=== PATIENT | male | born 1930 | race Caucasian/White ===

== ENCOUNTER 2018-03-26 06:02 | Inpatient (IN) | payer OTHER ==
[~2018-03-26] VITALS: Ht 177.8 cm; Wt 86.9 kg
[~2018-03-26 06:02] MED LIST: FELODIPINE ER10 MG PO; MECLIZINE HCL25 MG PO; NEXIUM 24HR20 M1 PO; SYNALAR 0.025%15 GM TP
[2018-03-26 07:48] LABS: BASOPHIL (%) 0.4 % (0-1); EOSINOPHIL (%) 1.5 % (0-5); EOSINOPHIL COUNT 0.1 K/uL (0-0.3); HEMATOCRIT 44.3 % (38.0-50.0); HEMOGLOBIN 14.9 G/DL (12.5-16.6); IMMATURE GRANULOCYTE (%) 0.4 % (0.0-0.7); LYMPHOCYTE (%) 26.2 % (15-42); MCH 30.3 PG (29.0-34.0); MCHC 33.6 G/DL (30.0-36.0); MCV 90.2 FL (86-99); MONOCYTE (%) 12.6 % (3-12); NEUTROPHIL (%) 58.9 % (45-76); NEUTROPHIL COUNT 4.6 K/uL (1.8-6.4); PLATELET COUNT 180 K/uL (156-360); RBC DIS.WIDTH-CV 13.1 % (11.8-14.6); RBC DIS.WIDTH-SD 43.3 % (39-53); RED BLOOD COUNT 4.91 M/uL (4.00-5.50); WHITE BLOOD COUNT 7.8 K/uL (4.1-10.2)
[2018-03-26 08:14] LABS: TROP-I INTERPRETATION NEGATIVE; TROPONIN-I 0.03 ng/mL (0.0-0.30)
[2018-03-26 08:18] LABS: ALBUMIN 3.8 G/DL (3.2-4.8); ALKALINE PHOSPHATASE 63 IU/L (3-129); ALT (GPT) 16 IU/L (3-49); AST (GOT) 24 IU/L (2-34); CHLORIDE 109 MEQ/L (99-109); CREATINE KINASE 340 IU/L (1-294); CREATININE 0.8 MG/DL (0.6-1.3); GFR ESTIMATE (CALCULATED) > 59 mL/min/ (58.99-99999); GLUCOSE 104 mg/dL (70-99); POTASSIUM 3.7 MEQ/L (3.7-5.4); SODIUM 144 MEQ/L (136-147); TOTAL BILIRUBIN 0.7 MG/DL (0.0-1.0); TOTAL CK 340 IU/L (1-294); TOTAL PROTEIN 5.9 G/DL (6.4-8.3); UREA NITROGEN (BUN) 22 mg/dL (9-23)
[2018-03-26 08:38] LABS: CKMB RELATIVE INDEX 2.8 (0.0-3.9)
[2018-03-26 08:44] LABS: CK-MB 9.5 ng/mL (0.0-4.9)
[2018-03-26 10:05] LABS: APPEARANCE CLEAR ((CLEAR)); BILIRUBIN NEGATIVE; BLOOD NEGATIVE; COLOR YELLOW ((YELLOW)); GLUCOSE (STRIP) NEGATIVE; KETONES NEGATIVE; LEUKOCYTES NEGATIVE; NITRITE NEGATIVE; PROTEIN (STRIP) NEGATIVE; SPECIFIC GRAVITY 1.023 (1.000-1.030); UCUL ADDED? NO; UROBILINOGEN 0.2 MG/DL (0.2-1.0)
[2018-03-26 13:25] LABS: TROP-I INTERPRETATION NEGATIVE; TROPONIN-I 0.03 ng/mL (0.0-0.30)
[2018-03-26 13:41] LABS: HDL CHOLESTEROL 46 MG/DL (Desirable>=40); LDL CHOLESTEROL 92 mg/dL (Desirable<100); NON-HDL CHOLESTEROL 108 mg/dL (Desirable<160); TOTAL CHOLESTEROL 154 mg/dL (Desirable<200); TRIGLYCERIDES 82 MG/DL (Normal: <150)
[2018-03-26] MEDS ORDERED: PRAVASTATIN SOD20 MG PO (15:22)
[2018-03-26] MEDS ORDERED: VALACYCLOVIR500 MG PO (15:22)
[2018-03-26] MEDS ORDERED: FISH OIL CONC1 EACH PO (15:23)
[2018-03-26] MEDS ORDERED: MEN'S 50 PLUS1 EACH PO (15:23)
[2018-03-26 18:45] LABS: TROP-I INTERPRETATION NEGATIVE; TROPONIN-I 0.02 ng/mL (0.0-0.30)
[2018-03-26 19:24] VITALS: BP 143/66
[2018-03-27] VITALS (7 sets, daily range): BP systolic 136–178; BP diastolic 70–100
[2018-03-28] VITALS (7 sets, daily range): BP systolic 124–186; BP diastolic 63–82
[2018-03-28 06:45] LABS: BASOPHIL (%) 0.4 % (0-1); EOSINOPHIL (%) 3.3 % (0-5); EOSINOPHIL COUNT 0.3 K/uL (0-0.3); HEMATOCRIT 41.2 % (38.0-50.0); HEMOGLOBIN 13.8 G/DL (12.5-16.6); IMMATURE GRANULOCYTE (%) 0.3 % (0.0-0.7); LYMPHOCYTE (%) 27.5 % (15-42); LYMPHOCYTE COUNT 2.2 K/uL (1.0-2.8); MCH 30.3 PG (29.0-34.0); MCHC 33.5 G/DL (30.0-36.0); MCV 90.5 FL (86-99); MONOCYTE (%) 11.1 % (3-12); MONOCYTE COUNT 0.9 K/uL (0-0.8); NEUTROPHIL (%) 57.4 % (45-76); NEUTROPHIL COUNT 4.6 K/uL (1.8-6.4); PLATELET COUNT 161 K/uL (156-360); RBC DIS.WIDTH-CV 13.4 % (11.8-14.6); RBC DIS.WIDTH-SD 43.8 % (39-53); RED BLOOD COUNT 4.55 M/uL (4.00-5.50)
[2018-03-28 08:11] LABS: CHLORIDE 111 MEQ/L (99-109); CREATININE 0.8 MG/DL (0.6-1.3); GFR ESTIMATE (CALCULATED) > 59 mL/min/ (58.99-99999); GLUCOSE 113 mg/dL (70-99); POTASSIUM 3.9 MEQ/L (3.7-5.4); SODIUM 144 MEQ/L (136-147); UREA NITROGEN (BUN) 15 mg/dL (9-23)
[2018-03-28 12:23] LABS: HEMOGLOBIN A1c (GLYCOHEMOGLOB) 5.8 % (Below 5.7)
[2018-03-29 03:50] VITALS: BP 177/78
[2018-03-29 08:14] VITALS: BP 178/77
[2018-03-29 11:39] VITALS: BP 145/92
[2018-03-29] MEDS ORDERED: ASPIRIN EC325 MG PO (14:19)
[2018-03-29 16:45] VITALS: BP 152/80
[2018-03-30 00:12] VITALS: BP 192/90
[2018-03-30 00:19] VITALS: BP 192/84
[2018-03-30 02:00] VITALS: BP 145/70
[2018-03-30 03:39] VITALS: BP 168/81
[2018-03-30 07:13] VITALS: BP 188/78
[2018-03-30] MEDS ORDERED: IMDUR30 MG PO (08:13)
[2018-03-30 11:11] VITALS: BP 143/73
== END 2018-03-30 15:01 | DRG 66 ==
LOC: EME → EDBD 06:02 → EME 06:02 → 5SOUTH 12:18 → EDOF 12:18 → ENRESERV 12:22 → 5SOUTH 15:37
PROVIDERS: Emergency Medicine; Internal Medicine; Nurse Practitioner Family
DX: I63.9 Cerebral infarction, unspecified (principal); R26.2 Difficulty in walking, not elsewhere classified; M51.36 Other intervertebral disc degeneration, lumbar region; Z91.81 History of falling; R42 Dizziness and giddiness; I10 Essential (primary) hypertension; M75.101 Unspecified rotator cuff tear or rupture of right shoulder, not specified as traumatic; M25.551 Pain in right hip; E78.5 Hyperlipidemia, unspecified; Z66 Do not resuscitate; Z85.828 Personal history of other malignant neoplasm of skin; Z87.891 Personal history of nicotine dependence
CPT/HCPCS: 36415; 70450; 70551; 71046; 72132; 74177; 80048; 80053; 80061; 81003; 82550; 82553; 83036; 84484; 85025; 87086; 93005; 93306; 93880; 99281; 99285; J1644; J7040